=== PATIENT | female | born 1995 | race Caucasian/White ===

== ENCOUNTER 2019-10-05 11:56 | Emergency (ER) | payer MEDICAID, SELFPAY ==
[2019-10-05 11:58] VITALS: BP 115/82; PULSE 108; RESP 18; O2SAT 97; BMI 19.0
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
--- NOTE | 2019-10-05 12:12 | XR_ITS ---
WS: [id number] PORTABLE CHEST HISTORY: cough/congestion COMPARISON: 06/26/2017 Torres rods at the thoracolumbar junction. No fracture or lucency or displacement identified. Lungs are clear and well expanded. No pleural effusion or pneumothorax. Cardiac size: Normal. Mediastinum/Aorta: Normal mediastinum. No osseous abnormality seen. XR/XR chest 1V portable [id number] IMPRESSION: Unremarkable portable chest.
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
[2019-10-05 12:17] VITALS: RESP 18
[2019-10-05] MEDS: morphine 4 mg/mL SDV 1 mL IM (12:17)
[2019-10-05 13:49] VITALS: BP 120/77; PULSE 95; RESP 18; O2SAT 95
== END 2019-10-05 13:49 | disposition home or self-care (01) ==
PROVIDERS: Emergency Provider Physician Assistant; Family Provider Family Medicine
DX: S20.229A Contusion of unspecified back wall of thorax, initial encounter (principal); W01.198A Fall on same level from slipping, tripping and stumbling with subsequent striking against other object, initial encounter; W10.9XXA Fall (on) (from) unspecified stairs and steps, initial encounter
CPT/HCPCS: 71045; 72128; 96372; 99281; 99283; J2270

== ENCOUNTER → 2020-10-01 08:44 | Outpatient (BNVA) | payer MEDICAID, SELFPAY | PROVIDERS: Family Provider Family Medicine; PCP Registered Nurse; Referring Provider Registered Nurse; Visit Provider Anesthesiology Pain Medicine | DX: M79.18 Myalgia, other site (principal); M54.9 Dorsalgia, unspecified; M54.6 Pain in thoracic spine; M54.2 Cervicalgia | CPT/HCPCS: 20553; 99205; J1030; J3490 ==

== ENCOUNTER 2020-12-10 11:47 | Emergency (ER) | payer SELFPAY ==
[2020-12-10 12:19] VITALS: BP 109/72; PULSE 74; RESP 18; TEMP 36.6; O2SAT 97; BMI 21.2
--- NOTE | 2020-12-10 12:34 | XRR_ITS ---
PROCEDURE INFORMATION: Exam: XR Abdomen Exam date and time: 12/10/2020 12:39 PM Age: 25 years old Clinical indication: Constipation and nausea; Abdominal pain; Localized; Right lower quadrant (rlq) TECHNIQUE: Imaging protocol: XR of the abdomen. Views: Frontal supine view of the abdomen. 1 View. COMPARISON: CT abdomen pelvis w con* [id number] 03/05/2018 1:15 AM FINDINGS: Gastrointestinal tract: Moderate fecal material in the rectum. Mild gaseous distension of small bowel loops. Intraperitoneal space: No free air. Organs: Rectangular lucency in the inferior pelvis, possibly vaginal tampon. Bones/joints: Thoracolumbar spine posterior fusion. XR/XR KUB portable [id number] IMPRESSION: No acute abdominal findings.
--- NOTE | 2020-12-10 12:35 | ED_ITS ---
HPI - Abdominal Pain General: Chief Complaint: Abdominal Pain Stated Complaint: BELLY BUTTON PAIN Time Seen by Provider: 12/10/20 12:31 History of Present Illness: HPI narrative: She presents with nausea last couple days. Decreased bowel movement which she has a history of constipation. Denies any fever chill or bladder problems. Has not vomited. Mild discomfort in the umbilical region. Concerned about a hernia. MD elicited complaint: abdominal pain Pertinent past history: constipation Onset (ago): day(s) Pain Consistency: intermittent Location: Periumbilical Severity: mild Quality: aching and fullness Radiation: none Migration to: no migration Exacerbating factors: nothing Relieving factors: nothing Associated Symptoms: Reports no associated symptoms and nausea; Denies chills, fever(s) and vomiting Related Data: Date of Last Menstrual Period: 12/10/20 Review of Systems Const: Denies: fever(s), chills or body aches Eyes: Denies: change in vision or blurry vision ENMT: Denies: throat pain or nasal congestion Card: Denies: chest pain or dyspnea on exertion Resp: Denies: dyspnea, productive cough or non-productive cough GI: Reports: abdominal pain and nausea; Denies: vomiting Musc: Denies: extremity pain Skin/Breast: Denies: rash Neuro: Denies: headache(s) Psych: Denies: anxiety or depression Wade/Lymph: Denies: easy bruising PFS ED PFSH: Family History (Updated 10/01/20 @ 09:06 by Shira Sales LPN) Father COPD (chronic obstructive pulmonary disease) Pacemaker Hypotension Mother Diabetes Congestive heart failure Social History Smoking and tobacco status: never smoked Female Reproductive History: Date of last menstrual period: 12/10/20 Physical Exam Const: COMMON NORMALS: no acute distress, average body habitus and patient oriented x3 HENMT: COMMON NORMALS: normocephalic HEAD & SCALP: normal to inspection and normocephalic FACE & SINUS: normal facial exam Eye: COMMON NORMALS: conjunctivae normal GENERAL EYE: appearance normal, both eyes and all related structures CONJUNCTIVA: Yes conjunctivae normal Neck/C-Spine: COMMON NORMALS: no JVD Chest: COMMONS NORMALS: normal inspection of the chest Resp: COMMON NORMALS: normal respiratory effort and clear to auscultation bilaterally AUSCULTATION: clear to auscultation bilaterally Cardio: COMMON NORMALS: no JVD, regular rate and regular rhythm RATE: regular rate RHYTHM: regular rhythm GI: AUSCULTATION: Yes normoactive bowel sounds PALPATION: Yes Tenderness to palpation present (GI) (Periumbilical area) PERCUSSION: normal to percussion Extremity: COMMON NORMALS: normal to inspection and full ROM Neuro: COMMON NORMALS: patient oriented x3 Course Vital Signs: Vital signs: Vital Signs Temperature 97.8 F 12/10/20 12:19 Pulse Rate 79 12/10/20 13:03 Respiratory Rate 16 12/10/20 13:03 Blood Pressure 105/87 12/10/20 13:03 Pulse Oximetry 100 12/10/20 13:03 MDM - Abdominal Pain MDM Narrative: Medical decision making narrative: Discussed labs and radiology findings with patient. Discussed her problem with the chronic constipation. We will try lactulose because she is not been on that before to see if that will help. Can continue use [id number] products as necessary. Increase fiber and fluids in her diet and exercise. She will follow-up with family medical provider if no significant provement. Lab Data: Labs: Lab Results 12/10/20 12/10/20 Range/Units 13:15 13:15 WBC 7.7 (4.0-10.0) 10^3/ uL RBC 3.91 L (4.1-5.3) 10^6/u L Hgb 11.5 (11.5-15.3) g/dL Hct 35.9 L (37.0-47.0) % MCV 91.8 (81-99) fL MCH 29.4 (28.0-34.0) pg MCHC 32.0 (30.0-36.0) g/dL RDW 14.5 (12.1-15.1) % Plt Count 304 (130-400) 10^3/c mm MPV 9.4 (7.4-10.4) fL Neut % (Auto) 62.4 % Lymph % (Auto) 21.7 % Warrick % (Auto) 8.1 % Eos % (Auto) 6.8 % Baso % (Auto) 0.9 % Neut # (Auto) 4.77 (1.8-7.7) 10^3/u L Lymph # (Auto) 1.7 (0.8-4.8) 10^3/u L Warrick # (Auto) 0.6 (0.2-0.9) 10^3/u L Eos # (Auto) 0.5 (0.0-0.8) 10^3/u L Baso # (Auto) 0.1 (0.0-0.1) 10^3/u L Nucleated RBC % (a uto) 0 % Nucleated RBCs # 0.0 /100WBC Sodium 138 (136-145) mmol/L Potassium 3.9 (3.5-5.1) mmol/L Chloride 104 (98-107) mmol/L Carbon Dioxide 26 (22-29) mmol/L Anion Gap 11.9 (5-19) BUN 9 (6-20) mg/dL Creatinine 0.5 (0.5-0.9) mg/dL GFR Calculation 151.6 H (90-130) mL/min Glucose 84 (65-115) mg/dL Calculated Osmolal ity 284 L (285-295) mOsm/k g Calcium 8.5 (8.5-10.5) mg/dL Lipase 21 (13-60) U/L Discharge Plan Discharge Patient Disposition: Home Clinical Impression: Constipation Qualifiers: Constipation type: slow transit constipation Qualified Code(s): K59.01 - Slow transit constipation Condition: Stable Prescriptions: New lactulose 10 gram packet 10 g PO DAILY PRN (Reason: constipation) Qty: 30 RF: 0 No Action methylprednisolone acetate [Depo-Medrol] 40 mg/mL suspension 40 mg intra-articular ONCE Qty: 1 RF: 0 bupivacaine (PF) 0.25 % (2.5 mg/mL) solution 1 ml intra-articular ONCE Qty: 1 RF: 0 methocarbamol [Robaxin-750] 750 mg tablet 750 mg PO BID Qty: 60 RF: 0 Tylenol-Codeine #3 300-30 mg tablet 1 tab PO Q6H PRN (Reason: pain) Qty: 10 RF: 0 Discharge Orders: Discharge ED (Routine); Ordered 12/10/20 Ordered By: Donte Washburn Discharge Diet: Usual diet Discharge Activity: Resume usual activity Patient Instructions: Constipation (ED) Activity Restrictions/Additional Instructions: Follow-up with medical provider as directed. Take medications as prescribed. Return to the ER or your medical provider if condition worsens. Please read and understand discharge instructions. If any questions ask please. Increase fiber in his diet. Increase water in diet. Try get as much exercise as possible. Use lactulose sparingly. Coding Level of Care Code ED Credit Verification Clerk for Apoorva Fwd Exam Comprehensive
[2020-12-10 13:03] VITALS: BP 105/87; PULSE 79; RESP 16; O2SAT 100
[2020-12-10 13:31] LABS: Basophils # 0.1 10^3/uL (0.0-0.1); Basophils % 0.9 %; Eosinophils # 0.5 10^3/uL (0.0-0.8); Eosinophils % 6.8 %; Hematocrit 35.9 % (37.0-47.0); Hemoglobin 11.5 g/dL (11.5-15.3); Lymphocytes # 1.7 10^3/uL (0.8-4.8); Lymphocytes % 21.7 %; Mean Corpuscular Hemoglobin 29.4 pg (28.0-34.0); Mean Corpuscular Volume 91.8 fL (81-99); Mean Platelet Volume 9.4 fL (7.4-10.4); Monocytes # 0.6 10^3/uL (0.2-0.9); Monocytes % 8.1 %; Neutrophils # 4.77 10^3/uL (1.8-7.7); Neutrophils % 62.4 %; Nucleated Red Blood Cells % 0 %; Platelet Count 304 10^3/cmm (130-400); Red Blood Count 3.91 10^6/uL (4.1-5.3); Red Cell Distribution Width 14.5 % (12.1-15.1); White Blood Count 7.7 10^3/uL (4.0-10.0)
[2020-12-10 13:58] LABS: Anion Gap 11.9 (5-19); Blood Urea Nitrogen 9 mg/dL (6-20); Calcium 8.5 mg/dL (8.5-10.5); Carbon Dioxide 26 mmol/L (22-29); Chloride 104 mmol/L (98-107); Glomerular Filtration Rate 151.6 mL/min (90-130); Glucose 84 mg/dL (65-115); Lipase 21 U/L (13-60); Osmolality Calculated 284 mOsm/kg (285-295); Potassium 3.9 mmol/L (3.5-5.1); Sodium 138 mmol/L (136-145)
== END 2020-12-10 14:04 | disposition home or self-care (01) ==
PROVIDERS: Emergency Provider Nurse Practitioner Family
DX: K59.01 Slow transit constipation (principal)
CPT/HCPCS: 74018; 80048; 83690; 85025; 99283

== ENCOUNTER → 2023-05-26 09:38 | Outpatient (BNVA) | payer MEDICAID, SELFPAY | PROVIDERS: PCP Family Medicine; Visit Provider Physician Assistant | DX: M54.9 Dorsalgia, unspecified (principal); G89.29 Other chronic pain; M54.2 Cervicalgia | CPT/HCPCS: 72040; 72050; 72070; 72110 ==

== ENCOUNTER 2023-06-09 09:11 | Outpatient (RCR) | payer MEDICAID, SELFPAY | END 2023-06-30 10:48 | disposition home or self-care (01) | LOC: SPT 09:11 | PROVIDERS: PCP Family Medicine; Visit Provider Physician Assistant | DX: M54.2 Cervicalgia (principal); M54.9 Dorsalgia, unspecified; G89.29 Other chronic pain | CPT/HCPCS: 97110; 97161 ==

== ENCOUNTER → 2023-06-16 11:49 | Outpatient (BNVA) | payer MEDICAID, SELFPAY | PROVIDERS: PCP Family Medicine; Visit Provider Family Medicine | DX: Z30.9 Encounter for contraceptive management, unspecified (principal) | CPT/HCPCS: 81025 ==

== ENCOUNTER → 2023-08-13 08:59 | Outpatient (BNVA) | payer MEDICAID, SELFPAY | PROVIDERS: PCP Family Medicine; Visit Provider Family Medicine Adult Medicine | DX: R09.81 Nasal congestion (principal) | CPT/HCPCS: 87426 ==